=== PATIENT | female | born 1990 | race Caucasian/White ===

== ENCOUNTER 2022-07-12 10:44 | Emergency (ER) | payer SELFPAY ==
[2022-07-12] MEDS ORDERED: PROMETHAZINE INJ 25 MG/ML AMP ONE (11:17)
[2022-07-12] MEDS ORDERED: LORAZEPAM 1 MG TABLET ONE (11:17)
--- NOTE | 2022-07-12 12:29 | RAD REPORT ---
EXAM DESCRIPTION: US - Pelvis Complete - 07/12/2022 12:13 pm CLINICAL HISTORY: ABD PAIN Pelvic pain. COMPARISON: None FINDINGS: Transabdominal ultrasound was performed. The patient refused transvaginal ultrasound The uterus is normal in size, shape and echotexture. The uterus measures 8.1 x 4.6 x 4.3 cm with volu me of 83.9 cc Endometrial stripe not measured. The patient was uncooperative and refused the remainder of the exam. IMPRESSION: Nondiagnostic. The study terminated prematurely due to patient's request. Neither ovary visualized.
[2022-07-12 13:06] LABS: Urine Blood Trace-intact (Negative); Urine Glucose Negative (Negative); Urine Protein 1+ (Negative); Urine Specific Gravity 1.015 (1.005-1.030); Urine pH 8.5 (5.0-7.0)
--- NOTE | 2022-07-12 13:31 | RAD REPORT ---
EXAM DESCRIPTION: CTStone Protocol - 07/12/2022 1:11 pm CLINICAL HISTORY: abd/pelvic pain COMPARISON: None TECHNIQUE: CT of the abdomen and pelvis was performed without IV contrast. All CT scans are performed using dose optimization technique as appropriate and may include automated exposure control or mA/KV adjustment according to patient size. FINDINGS: Lower chest: No acute abnormality. Liver: No acute abnormality or suspicious lesions. Biliary: No biliary ductal dilatation. Stomach: No significant focal abnormality. Duodenum: No significant focal abnormality. Pancreas: No significant abnormality. Spleen: No significant abnormality. Adrenal: No suspicious lesions. Kidney/ureter: No hydronephrosis. No renal calculi. Retroperitoneum: No retroperitoneal adenopathy. Vascular: No aneurysm. Bowel: Diffuse colonic wall thickening. There is also fluid within the small bowel.. Normal appendix. No bowel obstruction. Peritoneum: No ascites or free air. Bladder: Grossly unremarkable. Reproductive: No adnexal masses. Tampon. Ovaries grossly unremarkable. Bones: No acute fracture. Other: n/a IMPRESSION: Diffuse colonic wall thickening and fluid distended small bowel concerning for a mild en terocolitis. No bowel obstruction. Normal appendix. No urinary tract calculi.
--- NOTE | 2022-07-12 13:36 | ER ---
Nurse's Notes [facility] Name: Mercy Roque Age: 32 yrs Sex: Female : 1990 Arrival Date: 07/12/2022 Time: 10:45 Bed 12 Private MD: Diagnosis: Noninfective gastroenteritis and colitis, unspecified Presentation: 07/12 10:59 Chief complaint: Patient states: my insides are hurting, i had ruptured cysts on my iw ovaries, i'm supposed to have surgery, the pain started this morning around midnight, RLQ pain and vomiting. Coronavirus screen: At this time, the client does not indicate any symptoms associated with coronavirus-19. Ebola Screen: Patient negative for fever greater than or equal to 101.5 degrees Fahrenheit, and additional compatible Ebola Virus Disease symptoms Patient denies exposure to infectious person. Patient denies travel to an Ebola-affected area in the 21 days before illness onset. No symptoms or risks identified at this time. Onset of symptoms was July 12, 2022. 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 am2 10:48 Opal Diaz FNP-C is PHCP. snw 10:48 Wily Webber MD is Attending Physician. snw 11:00 Triage completed. iw 11:02 Arm band placed on. iw 11:25 Claudette Persaud, DARIO is Primary Nurse. iw 12:15 US Pelvis Complete In Process Unspecified. EDMS 13:13 CT Stone Protocol In Process Unspecified. EDMS Administered Medications: 11:25 Drug: Ativan (LORazepam) 1 mg Route: PO; iw 11:25 Drug: Phenergan (promethazine) 25 mg Route: IM; Site: left ventrogluteal; iw 13:54 Drug: morphine 4 mg Route: IM; Site: right ventrogluteal; iw 13:54 Drug: Ondansetron 4 mg Route: PO; iw Outcome: 13:35 Discharge ordered by . keesha 14:38 Patient left the ED. iw Signatures: Dispatcher [employer] EDMS Opal Diaz FNP-C FNP-CsnClaudette Boogie RN RN iw Caitlin Hua am2 Corrections: (The following items were deleted from the chart) 11:01 11:00 Allergies: No Known Allergies; iw iw
--- NOTE | 2022-07-12 13:36 | EDPHYS ---
Physician Documentation [facility] Name: Mercy Roque Age: 32 yrs Sex: Female : 1990 Arrival Date: 07/12/2022 Time: 10:45 Bed 12 Private MD: ED Physician Wily Webber HPI: 07/12 11:12 This 32 yrs old Female presents to ER via Wheelchair with complaints of Vomiting, snw Abdominal Pain. 11:12 The patient presents with pelvic pain, that is located in/on the groin, right femoral snw area, left femoral area, suprapubic area, right inguinal area and left inguinal area. Onset: The symptoms/episode began/occurred 2 month(s) ago, and became worse this morning, and became persistent. Associated signs and symptoms: Pertinent positives: nausea, vomiting. Severity of symptoms: At their worst the symptoms were severe. The patient has experienced similar episodes in the past. The patient has not recently seen a physician, and does not have an established primary care provider. 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/12/2022 iw 11:12 LMP 07/12/2022 snw Historical: - Allergies: 11:00 Adhesives; iw - Home Meds: 11:00 None [Active]; iw - PMHx: 11:00 None; iw - PSHx: 11:00 None; iw ROS: 11:09 Constitutional: Negative for fever, chills, and weight loss, Eyes: Negative for injury, snw pain, redness, and discharge, ENT: Negative for injury, pain, and discharge, Neck: Negative for injury, pain, and swelling, Cardiovascular: Negative for chest pain, palpitations, and edema, Respiratory: Negative for shortness of breath, cough, wheezing, and pleuritic chest pain, Back: Negative for injury and pain, : Negative for injury, bleeding, discharge, and swelling, MS/Extremity: Negative for injury and deformity, Skin: Negative for injury, rash, and discoloration, Neuro: Negative for headache, weakness, numbness, tingling, and seizure, Psych: Negative for depression, anxiety, suicide ideation, homicidal ideation, and hallucinations. 11:09 Abdomen/GI: Positive for abdominal pain, nausea and vomiting, of the right lower quadrant and left lower quadrant. Exam: 11:07 Head/Face: Normocephalic, atraumatic. Eyes: Pupils equal round and reactive to light, snw extra-ocular motions intact. Lids and lashes normal. Conjunctiva and sclera are non-icteric and not injected. Cornea within normal limits. Periorbital areas with no swelling, redness, or edema. ENT: Nares patent. No nasal discharge, no septal abnormalities noted. Tympanic membranes are normal and external auditory canals are clear. Oropharynx with no redness, swelling, or masses, exudates, or evidence of obstruction, uvula midline. Mucous membranes moist. Neck: Trachea midline, no thyromegaly or masses palpated, and no cervical lymphadenopathy. Supple, full range of motion without nuchal rigidity, or vertebral point tenderness. No Meningismus. Chest/axilla: Normal chest wall appearance and motion. Nontender with no deformity. No lesions are appreciated. 11:07 Back: No spinal tenderness. No costovertebral tenderness. Full range of motion. Skin: Warm, dry with normal turgor. Normal color with no rashes, no lesions, and no evidence of cellulitis. MS/ Extremity: Pulses equal, no cyanosis. Neurovascular intact. Full, normal range of motion. Neuro: Awake and alert, GCS 15, oriented to person, place, time, and situation. Cranial nerves II-XII grossly intact. Motor strength 5/5 in all extremities. Sensory grossly intact. Cerebellar exam normal. Normal gait. 11:07 Constitutional: The patient appears alert, anxious, restless, uncomfortable. 11:07 Cardiovascular: Rate: tachycardic, Rhythm: regular. 11:07 Respiratory: Exam negative for 11:07 Abdomen/GI: Bowel sounds: active, all quadrants, Palpation: moderate abdominal tenderness, in the suprapubic area, right lower quadrant and left lower quadrant. Vital Signs: 11:02 BP 125 / 100; Pulse 83; Resp 16; Temp 97.2; Pulse Ox 100% on R/A; iw MDM: 11:14 Patient medically screened. snw 13:37 Data reviewed: vital signs, nurses notes. Data interpreted: Pulse oximetry: on room air snw is 100 %. Interpretation: normal. Counseling: I had a detailed discussion with the patient and/or guardian regarding: the historical points, exam findings, and any diagnostic results supporting the discharge/admit diagnosis, lab results, radiology results, the need for outpatient follow up, to return to the emergency department if symptoms worsen or persist or if there are any questions or concerns that arise at home. Special discussion: Based on the patient's Hx, exam, and Dx evaluation, there is no indication for emergent surgery or inpatient Tx. It is understood by the patient/guardian that if the Sx's persist or worsen they need to return immediately for re-evaluation. Based on the history and exam findings, there is no indication for further emergent testing or inpatient evaluation. I discussed with the patient/guardian the need to see the primary care provider for further evaluation of the symptoms. 07/12 13:06 Order name: Urine Dipstick-Ancillary; Complete Time: 13:09 EDMS 07/12 11:09 Order name: US Pelvis Complete; Complete Time: 12:31 snw 07/12 12:30 Order name: CT Stone Protocol; Complete Time: 13:34 snw Administered Medications: 11:25 Drug: Ativan (LORazepam) 1 mg Route: PO; iw 11:25 Drug: Phenergan (promethazine) 25 mg Route: IM; Site: left ventrogluteal; iw 13:54 Drug: morphine 4 mg Route: IM; Site: right ventrogluteal; iw 13:54 Drug: Ondansetron 4 mg Route: PO; iw Disposition: 17:30 Co-signature as Attending Physician, Wily Webber MD I agree with the assessment and rt plan of care. Disposition Summary: 07/12/22 13:35 Discharge Ordered Location: Home snw Condition: Stable snw Diagnosis - Noninfective gastroenteritis and colitis, unspecified snw Followup: snw - With: Emergency Department - When: As needed - Reason: Worsening of condition Followup: snw - With: Private Physician - When: 1 - 2 days - Reason: Recheck today's complaints, Continuance of care, Re-evaluation by your physician Discharge Instructions: - Discharge Summary Sheet snw - Nausea and Vomiting, Adult snw - Viral Gastroenteritis, Adult snw Forms: - Medication Reconciliation Form snw - Thank You Letter snw - Antibiotic Education snw - Prescription Opioid Use snw Prescriptions: - Cipro 500 mg Oral Tablet - take 1 tablet by ORAL route every 12 hours for 10 days; 20 tablet; Refills: 0, snw Product Selection Permitted - Zofran 4 mg Oral Tablet - take 1 tablet by ORAL route every 12 hours As needed; 6 tablet; Refills: 0, snw Product Selection Permitted - dicyclomine 20 mg Oral Tablet - take 1 tablet by ORAL route 3 times per day; 21 tablet; Refills: 0, Product snw Selection Permitted Signatures: Dispatcher [employer] Opal Cortés FNP-C STUDENT FINANCIAL AID MANAGER-Claudette Acharya RN RN iw [place], Ryan, MD MD rt Corrections: (The following items were deleted from the chart) 11:01 11:00 Allergies: No Known Allergies; [facility]
[2022-07-12] MEDS ORDERED: ONDANSETRON 4 MG (ODT) TAB ONE ×2 (13:44→13:48)
[2022-07-12] MEDS ORDERED: MORPHINE 4 MG/ML SYR ONE (13:48)
[2022-07-12 20:40] VITALS: BP 125/100; TEMP 97.2; O2SAT 100
== END 2022-07-12 14:38 | disposition home or self-care (01) ==
LOC: ER 10:44
DX: K52.9 Noninfective gastroenteritis and colitis, unspecified (principal)
CPT/HCPCS: 74176; 76377; 76856; 81003; 96372; 99283; J2550; Q0162